=== PATIENT | male | born 1950 | race Caucasian/White ===

== ENCOUNTER 2017-02-08 08:14 | Outpatient (CLI) | payer OTHER, MEDICARE ==
[2017-02-08 08:49] LABS: Estimated GFR-MDRD - POC Greater than 90
--- NOTE | 2017-02-08 10:17 | CT ---
ABDOMEN AND PELVIS CT SCAN WITH AND WITHOUT IV CONTRAST WITH MULTIPHASE IMAGING: History: 66-year-old male with history of abnormal prostate biopsy. Hernia repair. Prostate cancer. Incomplete emptying of the bladder. FINDINGS: There are some old granuloma calcifications in the lung bases. There are three vessel coronary artery calcific changes with coronary vascular stents. Calcific change is noted in the liver, spleen, and p ancreas. The gallbladder demonstrates no evidence of gallstones. No pancreatic mass. No splenic mass. 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 There are multiple bilateral renal cysts, the largest involving the posterior aspect of the left kidn ey measuring approximately 2.7 cm with attenuation coefficients in the 70 range, evidence for hemorrh agic cyst. There are some minimally enlarged parapancreatic and retroperitoneal lymph nodes up to 1 c m in short axis with some very mild nonspecific upper central mesenteric fat stranding. No evidence f or renal calculus or acute obstruction. The visualized bladder, prostate, and pelvis is unremarkab le. No evidence for pelvic adenopathy. Normal appearing appendix. Focal area measuring approximately 2 cm in the lower left abdomen near the inguinal canal region, probably a small area of residual from prior fat necrosis. Minimal colonic diverticulosis without diverticulitis. Moderate central spinal c anal stenosis at L4-5. IMPRESSION: Bilateral renal cysts including a hemorrhagic cyst involving the posterior aspect of the right kidney . Some borderline sized lymph nodes in the parapancreatic and retroperitoneal region with some very m ild nonspecific fat stranding of the upper superior and mesentery. No evidence of renal calculus or a cute obstruction. Other findings as above. POS: [facility]
[2017-02-08] MEDS ORDERED: Iopamidol 370 76% 100 ML VIAL ONE (11:38)
== END 2017-02-08 08:15 | disposition home or self-care (01) ==
LOC: CT 08:14
PROVIDERS: ATTEND Urology
DX: C61 Malignant neoplasm of prostate (principal); R33.9 Retention of urine, unspecified; N28.1 Cyst of kidney, acquired
CPT/HCPCS: 74178; 82565

== ENCOUNTER 2017-02-15 09:05 | Outpatient (CLI) | payer OTHER, MEDICARE ==
[2017-02-15] MEDS ORDERED: Gadobenate Dimeglumine 529 MG/1 ML (20ML VIAL) ONE (10:05)
--- NOTE | 2017-02-15 15:49 | MRI ---
MRI OF THE PELVIS WITH AND WITHOUT CONTRAST: Date: 02/15/17 INDICATION: History of prostate cancer with abnormal prostate biopsy. TECHNIQUE: Multiplanar, multisequence MR images were obtained of the pelvis with and without contrast utilizing 17 mL of MultiHance contrast. COMPARISON: CT abdomen and pelvis dated 02/08/17. FINDINGS: The prostate measures 4.4 x 4.8 x 3.6 cm, giving a total prostatic volume of 39.5 mL. There is a prominent amount of retained hemorrhage within the posterior aspect of the prostate, most prominent within the peripheral zone. The presence of the hemorrhage slightly limits interpretation. There is moderate indistinct hypointensity seen scattered throughout the peripheral zone on the ADC a nd T2 weighted images. There is heterogeneous T2 signal abnormality seen within the central zone of t he prostate, most consistent with BPH. Visualized fibromuscular stroma appears within normal limits. Neurovascular bundles appear within normal limits. No pathologically enlarged lymph nodes are evident . No free fluid is identified. Visualized seminal vesicles and lower rectum appear within normal limi ts. Incidental note is made of a 3.4 cm hemangioma within the sacral promontory, left of midline. The re are a few scattered diverticula involving the visualized aspects of the colon. IMPRESSION: 1. PI-RADS Category 2 - low (clinically significant cancer is unlikely to be present). 2. Some limitations to the examination as stated above. 3. Colonic diverticulosis. POS: [facility]
== END 2017-02-15 09:06 | disposition home or self-care (01) ==
LOC: TBSIIMAG 09:05
PROVIDERS: ATTEND Urology
DX: C61 Malignant neoplasm of prostate (principal); R33.9 Retention of urine, unspecified; K57.30 Diverticulosis of large intestine without perforation or abscess without bleeding
CPT/HCPCS: 72197; A9579

== ENCOUNTER → 2022-03-02 | Outpatient (CLI) | payer MEDICARE | LOC: PET 11:45 | PROVIDERS: ATTEND Psychiatry & Neurology Neurology | DX: R41.3 Other amnesia (principal) | CPT/HCPCS: 78803; A9552 ==